=== PATIENT | male | born 1965 | race Caucasian/White ===

== ENCOUNTER 2020-02-10 07:59 | Day surgery (SDC) | payer BC, SELFPAY ==
[2020-02-08 10:51] LABS: BASOPHIL % 0.5 % (0.2-1.5); PLATELET COUNT 338 x10^3mcL (152-348); RED CELL DISTRIBUTION WIDTH 13.1 % (12.1-16.2)
[2020-02-08 11:26] LABS: ALBUMIN 3.8 g/dL (3.4-5.0); ALKALINE PHOSPHATASE 129 U/L (46-116); ALT/SGPT 27 U/L (16-63); AST/SGOT 20 U/L (15-37); BILIRUBIN TOTAL 0.3 mg/dL (0.20-1.00); CARBON DIOXIDE 29.8 mmol/L (21-32); CHLORIDE SERUM 102 mmol/L (98-107); CREATININE SERUM 0.9 mg/dL (0.7-1.3); GFR1 > 60 mL/min; GLUCOSE SERUM 100 mg/dL (74-106); SODIUM SERUM 140 mmol/L (136-145); TOTAL PROTEIN, SERUM 7.4 g/dL (6.4-8.2)
[2020-02-08 11:39] LABS: CALCIUM 9.1 mg/dL (8.5-10.1)
--- NOTE | 2020-02-08 15:16 | NUR ---
ABNORMAL EKG SENT TO [facility] FOR REVIEW.
[~2020-02-10] VITALS: Ht 170.2 cm; Wt 95.2 kg
[2020-02-10 08:29] VITALS: BP 123/75
[2020-02-10 16:08] VITALS: BP 116/84
== END 2020-02-10 15:55 | disposition home or self-care (01) ==
LOC: DS 07:59 → OR 10:30 → DS 15:55
PROVIDERS: ATTEND Surgery
DX: K81.1 Chronic cholecystitis (principal); F17.210 Nicotine dependence, cigarettes, uncomplicated; E66.9 Obesity, unspecified; Z68.31 Body mass index [BMI] 31.0-31.9, adult
CPT/HCPCS: J0131; J0694; J2175; J2250; J3010; J3490; Q9967